=== PATIENT | female | born 1985 | race Hispanic/Latino ===

== ENCOUNTER 2017-11-30 06:20 | Emergency (ER) | payer OTHER ==
[2017-11-30 06:37] VITALS: TEMP 98.6; O2SAT 98
[2017-11-30 07:58] LABS: BASO # 0.1 K/uL (0.0-0.2); BASO % 0.7 % (0.0-2.0); EOS # 0.3 K/uL (0.0-0.7); EOS % 3.1 % (0.0-4.0); HEMOGLOBIN 13.6 g/dL (12.0-16.0); LYMPH # 2.1 K/uL (1.0-4.3); LYMPH % 24.8 % (20.0-40.0); MEAN CELL VOLUME 89.7 fl (81.0-99.0); MEAN CORPUSCULAR HGB CONC 34.5 g/dL (33.0-37.0); MEAN PLATELET VOLUME 8.3 fl (7.2-11.7); MONO # 0.7 K/uL (0.0-0.8); MONO % 8.6 % (0.0-10.0); NEUT # 5.2 K/uL (1.8-7.0); NEUT % 62.8 % (50.0-75.0); RBC 4.4 Mil/uL (3.80-5.20); RED CELL DISTRIBUTION WIDTH 13.6 % (11.5-14.5); WHITE BLOOD COUNT 8.3 K/uL (4.8-10.8)
[2017-11-30 08:18] LABS: BLOOD UREA NITROGEN 11 mg/dl (7-17); CALCIUM 9.2 mg/dL (8.4-10.2); GFR AFRICAN-AMERICAN > 60; GFR NON-AFRICAN AMERICAN > 60
--- NOTE | 2017-11-30 08:21 | ED PDOC ---
HPI: Female Pain Time Seen by Provider: 11/30/17 07:01 Chief Complaint (Nursing): Female Genitourinary Chief Complaint (Provider): Female Genitourinary History Per: Patient History/Exam Limitations: no limitations Onset/Duration Of Symptoms: Sudden Onset Current Symptoms Are (Timing): Still Present Additional Complaint(s): 32 year old female, currently 11 weeks , presents to the emergency department with a complaint of light vaginal bleeding ongoing since this morning. Patient reported noticing blood-tinge urine in her toilet with small amount of blood on her underwear prior to arrival. She denied any pelvic pain, cramping, fever, chills, abdominal pain or urinary issues. Patient reported that she spoke with her SOFTWARE DESIGN MANAGER today and advised to wait until Sunday (12/03/17 ) for an ultrasound but then decided to go to ED for a sooner imaging study. SOFTWARE DESIGN MANAGER: Dr. Michele Claros Past Medical History Reviewed: Historical Data, Nursing Documentation, Vital Signs Vital Signs: Last Vital Signs Temp 98.6 F 11/30/17 06:33 Pulse 127 H 11/30/17 06:33 Resp 16 11/30/17 06:33 BP 146/102 H 11/30/17 06:33 Pulse Ox 98 11/30/17 06:33 - Medical History PMH: No Chronic Diseases Denies: Chronic Kidney Disease - Surgical History Surgical History: Denies: No Surg Hx Other surgeries: LEAP 2016 - Family History Family History: States: Unknown Family Hx - Social History Current smoker - smoking cessation education provided: No Alcohol: None Drugs: Denies - Home Medications Home Medications: Ambulatory Orders Medication Instructions Recorded Sulfamethoxazole/Trimethopri 1 tab PO BID #14 tab 12/16/14 [Bactrim Ds 800 mg-160 mg] - Allergies Allergies/Adverse Reactions: Allergies Allergy/AdvReac Type Severity Reaction Status Date / Time No Known Allergies Allergy Verified 12/16/14 09:10 Review of Systems ROS Statement: Except As Marked, All Systems Reviewed And Found Negative Constitutional: Negative for: Fever, Chills Gastrointestinal: Negative for: Abdominal Pain Genitourinary Female: Positive for: Vaginal Bleeding (light). Negative for: Dysuria, Incontinence, Hematuria, Pelvic Pain (or cramps) Physical Exam - Reviewed Nursing Documentation Reviewed: Yes Vital Signs Reviewed: Yes - Physical Exam Appears: Positive for: Non-toxic, No Acute Distress Head Exam: Positive for: ATRAUMATIC, NORMAL INSPECTION, NORMOCEPHALIC Skin: Positive for: Normal Color Eye Exam: Positive for: Normal appearance ENT: Positive for: Normal ENT Inspection Neck: Positive for: Normal Cardiovascular/Chest: Positive for: Regular Rate, Rhythm, Chest Non Tender Respiratory: Positive for: Normal Breath Sounds. Negative for: Decreased Breath Sounds, Wheezing, Respiratory Distress Gastrointestinal/Abdominal: Positive for: Normal Exam, Soft. Negative for: Tenderness Back: Positive for: Normal Inspection. Negative for: L CVA Tenderness, R CVA Tenderness Extremity: Positive for: Normal ROM (upper/lower) Neurologic/Psych: Positive for: Alert, Oriented - Laboratory Results Result Diagrams: 11/30/17 07:53 11/30/17 07:53 - ECG O2 Sat by Pulse Oximetry: 98 (RA) Pulse Ox Interpretation: Normal Medical Decision Making Medical Decision Making: Initial Impression: Threatened Initial Plan: * BMP * serum * Urine * Urine dipstick * CBC * US transvaginal Scribe Attestation: Documented by Arline Mohamud, acting as a scribe for Yamileth Burnham MD. Provider Scribe Attestation: All medical record entries made by the Scribe were at my direction and personally dictated by me. I have reviewed the chart and agree that the record accurately reflects my personal performance of the history, physical exam, medical decision making, and the department course for this patient. I have also personally directed, reviewed, and agree with the discharge instructions and disposition. Disposition - Clinical Impression Clinical Impression: Vaginal bleeding affecting early - Patient ED Disposition Is Patient to be Admitted: No Doctor Will See Patient In The: Office Counseled Patient/Family Regarding: Diagnosis, Need For Followup - Disposition Referrals: Odalys Orellana MD [Primary Care Provider] - Michele Claros MD [Staff Provider] - Disposition: Routine/Home Disposition Time: 09:30 Condition: STABLE Instructions: Bleeding With , - The Third Month Forms: [employer] (Italian) - POA Present On Arrival: None
--- NOTE | 2017-11-30 09:13 | US ---
PROCEDURE: OB Pelvic Ultrasound HISTORY: 11 wks IUP w/ sudden light vaginal bleeding LMP: 09/12/2017 COMPARISON: None available. FINDINGS: UTERUS: Gestational sac: Single intrauterine gestation. Measures 5.8 cm compatible with estimated gestational age of 11 weeks, 6 days Yolk sac: Measures 0.8 cm pole: [place]-rump length measures 5.1 cm compatible with estimated gestational age of 11 weeks, 6 days Heart rate: 156 bpm. age (Ultrasound estimated): 11 weeks, 6 days Rose-gestational hemorrhage: Small subchorionic hemorrhage measuring 1.6 x 1.3 x 1.0 cm. Date of delivery (Ultrasound estimated) : 06/15/2018 Uterus measures 14.1 x 10.8 x 6.0 cm. Anteverted. Normal in size and appearance. CERVIX: Measures 3.5 cm. Long and closed. No cervical abnormality seen. RIGHT OVARY: Measures 2.5 x 1.6 x 2.5 cm. No mass lesion. Normal flow. LEFT OVARY: Measures 2.8 x 2.7 x 1.9 cm. No solid mass. Left ovarian cyst measuring 1.6 x 1.1 x 1.1 cm with septation. Normal flow. FREE FLUID: None. OTHER FINDINGS: None. IMPRESSION: Single viable intrauterine gestation with average ultrasound age of 11 weeks, 6 days. heart rate 156 beats per minute. Cervix long and closed. Small subchorionic hemorrhage.
[2017-11-30 10:08] VITALS: BP 140/90; PULSE 92; RESP 18
== END 2017-11-30 09:57 | disposition home or self-care (01) ==
LOC: H.ER 06:20
DX: O20.8 Other hemorrhage in early pregnancy (principal); Z3A.11 11 weeks gestation of pregnancy